=== PATIENT | female | born 1970 | race Caucasian/White ===

== ENCOUNTER → 2019-07-28 09:16 | Outpatient (BNVA) | payer MEDICARE, MEDICAID, SELFPAY | PROVIDERS: Family Provider Family Medicine; PCP Family Medicine; Visit Provider Otolaryngology | DX: H92.02 Otalgia, left ear (principal); H92.12 Otorrhea, left ear; J31.0 Chronic rhinitis; J34.2 Deviated nasal septum; J34.3 Hypertrophy of nasal turbinates; R09.82 Postnasal drip; H91.90 Unspecified hearing loss, unspecified ear; F17.210 Nicotine dependence, cigarettes, uncomplicated | CPT/HCPCS: 99203; 99214 ==

== ENCOUNTER 2019-10-18 18:14 | Emergency (ER) | payer MEDICARE, MEDICAID, SELFPAY ==
[2019-10-18 18:34] VITALS: BP 180/131; PULSE 94; RESP 17; TEMP 36.7; O2SAT 97; BMI 32.5
--- NOTE | 2019-10-18 19:01 | XR_ITS ---
WS: [id number] SHOULDER RIGHT TECHNIQUE: 3 views of the right shoulder CLINICAL INFORMATION: pain COMPARISON: None. FINDINGS: Normal acromioclavicular joint. Normal glenohumeral joint. Acromion is normal in appearance. Normal g lenoid. No evidence of acute fracture dislocation. XR/XR shoulder RT min 2V* [id number] IMPRESSION: Normal right shoulder.
--- NOTE | 2019-10-18 19:01 | XR_ITS ---
WS: [id number] SHOULDER LEFT TECHNIQUE: 3 views of the left shoulder CLINICAL INFORMATION: pain COMPARISON: None. FINDINGS: Normal acromioclavicular joint. Normal glenohumeral joint. Acromion is normal in appearance. Normal g lenoid. No evidence of acute fracture dislocation. XR/XR shoulder LT min 2V* [id number] IMPRESSION: Normal left shoulder.
--- NOTE | 2019-10-18 19:01 | XR_ITS ---
WS: [id number] PROCEDURE: XR chest 1V [id number] CLINICAL INFORMATION: pain COMPARISON: None. FINDINGS: Heart: Normal cardiac silhouette. Lungs: Lungs are clear. No consolidation or pleural fluid. Bones: Normal visualized bony structures. XR/XR chest 1V [id number] IMPRESSION: Normal chest
--- NOTE | 2019-10-18 19:06 | W.ED.GENADLT ---
HPI - General Adult General: Chief complaint: General Medical Stated complaint: arm pain due to fall Time Seen by Provider: 10/18/19 18:38 History of Present Illness: HPI narrative: 48-year-old female complains of bilateral shoulder pain radiating across her clavicles into her breastbone since August. She evidently fell on outstretched arms and felt a jarring motion in the area. She is having trouble sleeping and lifting things overhead. She says the pain is getting worse. Onset (ago): month(s) (2) Location: right and upper extremity Radiation: other (chest) Severity: moderate Quality: aching and sharp Pain Consistency: constant Relieving factors: none Exacerbating factors: movement Associated symptoms: Deny chest pain, dyspnea, headache(s), nausea, rash, palpitations or vomiting Review of Systems Const: Denies: fever or chills Eyes: Denies: change in vision or blurry vision ENMT: Denies: painful swallowing or facial/sinus pain Card: Denies: chest pain, palpitations or irregular heart rhythm Resp: Denies: shortness of breath, productive cough or wheezing GI: Denies: abdominal pain, nausea or vomiting Musc: Reports: neck pain; Denies: back pain, redness or joint warmth Skin/Breast: Denies: rash Neuro: Denies: headache, dizziness or vertigo Psych: Denies: anxiety PFSH ED PFSH: Social History Smoking and tobacco status: current every day smoker cigarettes Physical Exam Const: GENERAL APPEARANCE: well developed ORIENTATION/CONSCIOUSNESS: Yes oriented to person, Yes oriented to place and Yes oriented to time HENMT: COMMON NORMALS: normocephalic and external nose normal HEAD & SCALP: normocephalic FACE & SINUS: normal facial exam NOSE: external nose normal Eye: COMMON NORMALS: PERRL, EOMs intact bilaterally and conjunctivae normal EYELID: eyelids normal CONJUNCTIVA: Yes conjunctivae normal PUPIL: Yes PERRL Neck/C-Spine: COMMON NORMALS: full ROM GENERAL: No tracheal deviation CERVICAL SPINE: Yes normal cervical lordosis and No cervical spine tenderness Chest: COMMONS NORMALS: inspection of chest normal CHEST: No tenderness Resp: COMMON NORMALS: clear to auscultation bilaterally EFFORT & INSPECTION: No tachypneic, No respiratory distress, No retractions, No uses accessory muscles and No tracheal deviation AUSCULTATION: clear to auscultation bilaterally, no rhonchi, no wheezes and lung sounds not diminished Cardio: COMMON NORMALS: regular rate and regular rhythm RATE: regular rate RHYTHM: regular rhythm HEART SOUNDS: no murmurs PERIPHERAL PULSES: radial pulses present GI: INSPECTION: No abdominal distension Extremity: NARRATIVE EXTREMITY EXAM: Bilateral shoulder anterior tenderness with tenderness over the AC joints and SC joints. No deformity. Some tenderness in the rotator cuff footprint with movement. Neuro: SENSORIUM/ORIENTATION: Yes oriented to person, Yes oriented to place and Yes oriented to time Psych: COMMON NORMALS: mental status grossly normal Skin: COMMON NORMALS: no rashes or lesions noted GENERAL SKIN EXAM: no rashes or lesions noted Course Vital Signs: Vital signs: Vital Signs Temperature 98.1 F 10/18/19 18:34 Pulse Rate 94 10/18/19 18:34 Respiratory Rate 17 10/18/19 18:34 Blood Pressure 180/131 10/18/19 18:34 Pulse Oximetry 97 10/18/19 18:34 Discharge Plan Discharge Clinical Impression: Sprain of left sternoclavicular joint Qualifiers: Encounter type: initial encounter Qualified Code(s): S43.62XA - Sprain of left sternoclavicular joint, initial encounter Sprain of right sternoclavicular joint Qualifiers: Encounter type: initial encounter Qualified Code(s): S43.61XA - Sprain of right sternoclavicular joint, initial encounter Condition: Stable Prescriptions: [place] 5-325 mg tablet 1 tab PO Q6H PRN (Reason: pain) Qty: 10 RF: 0 ketorolac 10 mg tablet 10 mg PO Q6H PRN (Reason: pain) Qty: 10 RF: 0 No Action levalbuterol HCl See Rx Instructions .ROUTE .COMPLEX RF: 0 montelukast [Singulair] 10 mg tablet 10 mg PO .as needed RF: 0 Tylenol Arthritis Pain 650 mg Tablet Extended Release 650 mg PO Q12H PRN (Reason: Pain) RF: 0 levalbuterol tartrate [Xopenex HFA] 45 mcg/actuation HFA aerosol inhaler See Rx Instructions .ROUTE .COMPLEX RF: 0 Discharge Orders: Discharge Order (Routine); Ordered 10/18/19 Ordered By: Ashkan Santos Referrals: Dominick Shane MD [Primary Care Provider] - 4-7 days Discharge Diet: Usual diet Discharge Activity: Increase activity as tolerated Patient Instructions: Ligament Sprain (ED) Activity Restrictions/Additional Instructions: See your doctor, as a short course of physical therapy or further testing may be needed. Coding Level of Care Code ED [employer] for [employer] Seymour
== END 2019-10-18 20:39 ==
PROVIDERS: Emergency Provider Emergency Medicine; Family Provider Family Medicine; PCP Family Medicine
DX: S43.62XA Sprain of left sternoclavicular joint, initial encounter (principal); S43.61XA Sprain of right sternoclavicular joint, initial encounter; W19.XXXA Unspecified fall, initial encounter; F17.210 Nicotine dependence, cigarettes, uncomplicated
CPT/HCPCS: 12345; 71045; 73030; 99281; 99282

== ENCOUNTER 2020-01-06 21:15 | Emergency (ER) | payer MEDICARE, MEDICAID, SELFPAY ==
[2020-01-06 21:29] VITALS: BP 129/92; PULSE 77; RESP 18; TEMP 36.3; O2SAT 93; BMI 31.9
--- NOTE | 2020-01-06 21:55 | ED_ITS ---
HPI - Neck Pain/Injury General: Chief Complaint: Neck Pain/Injury Stated Complaint: neck swelling and pain Time Seen by Provider: 01/06/20 21:35 History of Present Illness: HPI Narrative: Patient is a 49-year-old female comes to the ED with neck pain. Patient also has some right arm and shoulder pain that is currently being further evaluated and patient has a scheduled MRI coming up. Patient is complaining of right-sided neck pain and tenderness that started approximately 2 days ago. Patient rates the pain a 10 out of 10. She says that any head movement causes some pain on right side of neck. Patient says she has right-sided neck swelling. Denies any trouble breathing. Denies any fever, chills, nausea/vomiting, bladder or bowel symptoms. Associated symptoms: Denies headache(s) or nausea Review of Systems Const: Denies: fever(s), chills or fatigue Eyes: Denies: change in vision or eye discomfort ENMT: Denies: throat pain, odynophagia, nasal discharge or nasal congestion Card: Denies: chest pain, palpitations, edema, swelling of feet/ankles, dyspnea on exertion or orthopnea Resp: Denies: dyspnea, productive cough or non-productive cough GI: Denies: abdominal pain, nausea, vomiting, diarrhea, constipation or hematochezia : Denies: flank pain, dysuria or hematuria Musc: Reports: neck pain (Patient complaining of right-sided neck pain and right-sided neck swelling.); Denies: back pain or extremity swelling Skin/Breast: Denies: rash or new lesions Neuro: Denies: headache(s), numbness in extremities or weakness in extremities [facility] ED PFSH: Family History Other Hypertension Thyroid trouble Social History Smoking and tobacco status: current every day smoker cigarettes Physical Exam Const: COMMON NORMALS: no acute distress, patient oriented x3 and alert GENERAL APPEARANCE: cooperative and comfortable HENMT: COMMON NORMALS: normocephalic HEAD & SCALP: normocephalic MOUTH: Normal oral and palatal mucosa present THROAT: posterior oropharynx normal and uvula midline Eye: COMMON NORMALS: Equal, round and reactive pupils present PUPIL: Yes Equal, round and reactive pupils present Neck/C-Spine: COMMON NORMALS: supple GENERAL: Yes normal visual inspection, No anterior neck swelling, Yes tender (Right sided neck muscle tenderness. Sternocleidomastoid muscle tenderness.) and No Mass present (neck) OTHER: Patient has no visible swelling on the right side of neck and no mass palpated on right side of neck. Lymph: LYMPHATIC: lymphadenopathy right anterior cervical single, mobile and tender 2 cm Resp: COMMON NORMALS: normal respiratory effort, No retractions, No use of accessory muscles and clear to auscultation bilaterally AUSCULTATION: clear to auscultation bilaterally Cardio: COMMON NORMALS: regular rate, regular rhythm, S1 normal heart sound present, S2 normal heart sound present, No gallops present (Cardio), No clicks present (Cardio), No murmurs present (Cardio) and Peripheral pulses 2+ throughout RATE: regular rate RHYTHM: regular rhythm HEART SOUNDS: S1 normal heart sound present and S2 normal heart sound present PERIPHERAL PULSES: Peripheral pulses 2+ throughout GI: COMMON NORMALS: Normal to inspection, nondistended, normoactive bowel sounds present, Soft to palpation, non-tender and no masses PALPATION: Yes Soft to palpation : COMMON NORMALS: Yes no CVA tenderness BLADDER/KIDNEY EXAM: Yes no CVA tenderness Back/Pelvis: COMMON NORMALS: no CVA tenderness Extremity: COMMON NORMALS: normal to inspection and no pedal edema Neuro: COMMON NORMALS: patient oriented x3 and moves all extremities SENSOR IUM/ORIENTATION: Yes alert Skin: COMMON NORMALS: no rashes or lesions noted GENERAL SKIN EXAM: no rashes or lesions noted and dry skin Course Vital Signs: Vital signs: Vital Signs Temperature 97.4 F L 01/06/20 21:29 Pulse Rate 84 01/07/20 00:26 Respiratory Rate 18 01/07/20 00:26 Blood Pressure 147/92 01/07/20 00:26 Pulse Oximetry 97 01/07/20 00:26 MDM - Neck Pain/Injury MDM Narrative: Medical decision making narrative: Is a 49-year-old female comes to the ED with right-sided neck pain. Patient has a history of some right arm and shoulder pain and is getting an MRI performed in the next couple weeks. Patient was complaining of having trouble chewing and swallowing but denied any problems with breathing or airway obstruction. Physical was remarkable for some right cervical muscle tenderness (sternocleidomastoid) and tender submandibular lymph node palpated. CT of the neck was performed and it showed Fat stranding surrounding the right carotid artery bifurcation. No mass or organized fluid collection. This finding could relate to prior surgery or procedure. Correlation with patient's prior procedure history recommended. An inflammatory process such as arteritis is not excluded. Scattered cervical and submandibular lymph nodes are most likely reactive. Patient was given Toradol and Norflex while here in the ED. She was also given a dose of Decadron as well. Patient diagnosed with neck muscle strain and lymphadenitis. She was given a prescription for tizanidine and Decadron. She was also told to take [id number] ibuprofen to help with pain inflammation as well. Patient discharged and told to follow- up with PCP in 7 to 10 days for reevaluation. Return to ED if symptoms worsen. Patient understood and agreed with plan. Imaging Data^: Other CT: Attestation: I personally reviewed and interpreted this imaging study as follows: Radiologist's impression: [place] [address] CT Scan Report Signed Patient: Eduarda Houser Unit #: [id number] : 1970 Age/Sex: 49 / F ADM Date: 01/06/20 Loc: ER Room/Bed: Attending Dr: Ordering Provider/Ordering MD: Brice Shore Date of Service: 01/06/20 Procedure(s): CT neck wo con [id number] Accession Number(s): [id number] Report Number: [id number] PROCEDURE INFORMATION: Exam: CT Neck Without Contrast Exam date and time: 01/06/2020 11:09 PM Age: 49 years old Clinical indication: Dysphagia / difficulty swallowing; Throat pain; Prior surgery; Surgery type: Mass removed; Additional info: Neck pain and trouble swallowing TECHNIQUE: Imaging protocol: Computed tomography images of the neck without contrast. Radiation optimization: All CT scans at this facility use at least one of these dose optimization techniques: automated exposure control; mA and/or kV adjustment per patient size (includes targeted exams where dose is matched to clinical indication); or iterative reconstruction. COMPARISON: CT neck w con* [id number] 11/19/2016 10:41 PM RADIATION DOSE METRICS: Total DLP (mGy-cm): 597.06 FINDINGS: Nasopharynx: Unremarkable. Oropharynx: Unremarkable. No significant tonsillar enlargement. Hypopharynx: Unremarkable. Larynx: Unremarkable. Normal epiglottis. Retropharyngeal space: Unremarkable. Submandibular/Parotid glands: Normal. Glands are normal in size. Thyroid: Normal. No enlarged or calcified nodules. Lymph nodes: Scattered cervical and submandibular lymph nodes measure up to 10 mm short axis and are most likely reactive. Trachea: Visualized trachea is unremarkable. Lungs: Unremarkable as visualized. Bones/joints: Unremarkable. No acute fracture. Vasculature: There is mild stranding within the fat surrounding the distal right common carotid artery, bifurcation, and proximal internal carotid artery. No organized fluid collection or mass identified. Soft tissues: Severe centrilobular emphysema. CT/CT neck wo con [id number] IMPRESSION: 1. Fat stranding surrounding the right carotid artery bifurcation. No mass or organized fluid collection. This finding could relate to prior surgery or procedure. Correlation with patient's prior procedure history recommended. An inflammatory process such as arteritis is not excluded. 2. Scattered cervical and submandibular lymph nodes are most likely reactive. 3. Severe emphysema. Radiation Dose CTDIVOL = (mGy): DLP = 597.06 (mGy-cm) Dictated By: Yaw Merrill Signed By: Yaw Merrill Signed Date/Time: 01/06/202353 DD/ 52 Discharge Plan Discharge Patient Disposition: Home, Self-Care Clinical Impression: Lymphadenitis Neck muscle strain Qualifiers: Encounter type: initial encounter Qualified Code(s): S16.1XXA - Strain of muscle, fascia and tendon at neck level, initial encounter Condition: Stable Prescriptions: New tizanidine 2 mg tablet 2 mg PO TID PRN (Reason: muscle spasticity) Qty: 30 RF: 0 ibuprofen 600 mg tablet 600 mg PO Q8H Qty: 30 RF: 0 dexamethasone 2 mg tablet 2 mg PO TID 3 Days Qty: 9 RF: 0 No Action levalbuterol HCl See Rx Instructions .ROUTE .COMPLEX RF: 0 montelukast [Singulair] 10 mg tablet 10 mg PO .as needed RF: 0 bacitracin 500 unit/gram ointment 1 applic ophthalmic (eye) Q8H 7 Days Qty: 3.5 RF: 0 levalbuterol tartrate [Xopenex HFA] 45 mcg/actuation HFA aerosol inhaler See Rx Instructions .ROUTE .COMPLEX RF: 0 Discharge Orders: Discharge Order (Routine); Ordered 01/06/20 Ordered By: Brice Shore Referrals: Dominick Shane MD [Primary Care Provider] - Discharge Diet: Regular Discharge Activity: Increase activity as tolerated Patient Instructions: Muscle Strain (ED) Activity Restrictions/Additional Instructions: Follow-up with medical provider as directed 7-10 days. Go to your schedule MRI appointment in the future. Take medications as prescribed. Return to the ER or your medical provider if condition worsens. Please read and understand discharge instructions. If any questions, please ask. Discharge Date/Time: 01/07/20 00:27 Coding Level of Care Code ED [employer] for [employer] Fwd Exam Comprehensive
--- NOTE | 2020-01-06 23:02 | CTR_ITS ---
PROCEDURE INFORMATION: Exam: CT Neck Without Contrast Exam date and time: 01/06/2020 11:09 PM Age: 49 years old Clinical indication: Dysphagia / difficulty swallowing; Throat pain; Prior surgery; Surgery type: Mass removed; Additional info: Neck pain and trouble swallowing TECHNIQUE: Imaging protocol: Computed tomography images of the neck without contrast. Radiation optimization: All CT scans at this facility use at least one of these dose optimization techniques: automated exposure control; mA and/or kV adjustment per patient size (includes targeted exams where dose is matched to clinical indication); or iterative reconstruction. COMPARISON: CT neck w con* [id number] 11/19/2016 10:41 PM RADIATION DOSE METRICS: Total DLP (mGy-cm): 597.06 FINDINGS: Nasopharynx: Unremarkable. Oropharynx: Unremarkable. No significant tonsillar enlargement. Hypopharynx: Unremarkable. Larynx: Unremarkable. Normal epiglottis. Retropharyngeal space: Unremarkable. Submandibular/Parotid glands: Normal. Glands are normal in size. Thyroid: Normal. No enlarged or calcified nodules. Lymph nodes: Scattered cervical and submandibular lymph nodes measure up to 10 mm short axis and are most likely reactive. Trachea: Visualized trachea is unremarkable. Lungs: Unremarkable as visualized. Bones/joints: Unremarkable. No acute fracture. Vasculature: There is mild stranding within the fat surrounding the distal right common carotid artery, bifurcation, and proximal internal carotid artery. No organized fluid collection or mass identified. Soft tissues: Severe centrilobular emphysema. CT/CT neck wo con [id number] IMPRESSION: 1. Fat stranding surrounding the right carotid artery bifurcation. No mass or organized fluid collection. This finding could relate to prior surgery or procedure. Correlation with patient's prior procedure history recommended. An inflammatory process such as arteritis is not excluded. 2. Scattered cervical and submandibular lymph nodes are most likely reactive. 3. Severe emphysema. Radiation Dose CTDIVOL = (mGy): DLP = 597.06 (mGy-cm)
[2020-01-07] MEDS: diphenhydrAMINE 25 mg Capsule PO (00:19)
[2020-01-07] MEDS: dexamethasone 4 mg Tablet 10 MG PO (00:19)
[2020-01-07 00:26] VITALS: BP 147/92; PULSE 84; RESP 18; O2SAT 97
== END 2020-01-07 00:27 | disposition home or self-care (01) ==
PROVIDERS: Emergency Provider Physician Assistant; PCP Family Medicine
DX: S16.1XXA Strain of muscle, fascia and tendon at neck level, initial encounter (principal); I88.9 Nonspecific lymphadenitis, unspecified; X58.XXXA Exposure to other specified factors, initial encounter; F17.210 Nicotine dependence, cigarettes, uncomplicated
CPT/HCPCS: 12345; 70490; 99281; 99283; J8540

== ENCOUNTER 2020-01-12 13:25 | Outpatient (CLI) | payer MEDICARE, MEDICAID, SELFPAY ==
--- NOTE | 2020-01-12 13:35 | MR_ITS ---
WS: [id number] MRI RIGHT SHOULDER NONCONTRAST TECHNIQUE: Sagittal T2, coronal PD, axial T2, CLINICAL INFORMATION: RIGHT SHOULDER PAIN COMPARISON: None. FINDINGS: Limited examination with 3 sequences obtained. Patient could not tolerate further imaging due to pain . Moderate degenerative arthritis at the AC joint with mild edema. Mild downsloping acromion. Rotator c uff appears intact. Normal supraspinatus. Normal infraspinatus. Normal teres minor and subscapularis. Normal biceps tendon in the bicipital groove. Glenoid labrum appears grossly normal. MR/MR shoulder RT wo con* [id number] IMPRESSION: 1. Limited examination. Patient could not tolerate further imaging. 2. 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 3. Rotator cuff is intact. No full-thickness rotator cuff tears. 4. Normal biceps tendon in the bicipital groove. 5. Glenoid labrum appears grossly normal.
== END 2020-01-12 13:26 | disposition home or self-care (01) ==
LOC: RADSHAW 13:33
PROVIDERS: PCP Family Medicine; Visit Provider Family Medicine
DX: M25.511 Pain in right shoulder (principal); M19.011 Primary osteoarthritis, right shoulder; R60.0 Localized edema
CPT/HCPCS: 73221

== ENCOUNTER 2021-02-27 11:04 | Outpatient (CLI) | payer MEDICARE, MEDICAID, SELFPAY ==
--- NOTE | 2021-02-27 11:10 | CT_ITS ---
WS: [id number] CT ABDOMEN PELVIS TECHNIQUE: Contrast-enhanced CT of the abdomen and pelvis with coronal and sagittal reformatted image s. CLINICAL INFORMATION: CHRONIC RLQ ABDOMINAL PAIN COMPARISON: CT abdomen pelvis 12 26,018 DLP: 1120.[address] scans at [facility] use at least one of these dose optimization techniques: automat ed exposure control; mA and/or kV adjustment per patient size (includes targeted exams where dose is matched to clinical indication); or iterative reconstruction. FINDINGS: Prior cholecystectomy and hysterectomy. Diffuse fatty infiltration liver. Hepatomegaly. A few small hepatic cysts. Normal portal vein and splenic vein. Normal spleen. Lung bases are well aerated. Jacqueline l GE junction. Normal pancreatic parenchymal enhancement. Normal caliber abdominal aorta. No abdomina l or pelvic lymphadenopathy. Adrenal glands are normal. Normal renal parenchymal enhancement. No hydr onephrosis. Normal sigmoid colon. Transverse colon constipation. No free fluid in the pelvis. Complex right ovari an lesion measuring 2.2 x 2.1 cm. This can be further evaluated with ultrasound. Normal lumbar spine. CT/CT abdomen pelvis w con* [id number] IMPRESSION: 1. Prior postoperative cholecystectomy and hysterectomy 2. Complex right ovarian mixed attenuation lesion measuring 2.0 x 2.2 CM. This is indeterminant and recommend further evaluation with pelvic ultrasound. 3. Diffuse fatty infiltration of the liver with hepatomegaly. A few incidental hepatic cysts are unchanged. 4. No hydronephrosis in either kidney. 5. Transverse colon constipation. 6. No other significant findings.
[2021-02-27] MEDS: iohexol 300 mg/mL 50 mL Btl PO (11:42)
[2021-02-27] MEDS: iohexol 300 mg/mL 100 mL Btl IV (13:13)
== END 2021-02-27 11:05 | disposition home or self-care (01) ==
PROVIDERS: PCP Family Medicine; Visit Provider Family Medicine
DX: R10.31 Right lower quadrant pain (principal); K59.00 Constipation, unspecified; K76.0 Fatty (change of) liver, not elsewhere classified; R16.0 Hepatomegaly, not elsewhere classified; Z90.710 Acquired absence of both cervix and uterus; Z90.49 Acquired absence of other specified parts of digestive tract
CPT/HCPCS: 74177; Q9967

== ENCOUNTER 2021-05-08 08:16 | Emergency (ER) | payer MEDICARE, MEDICAID, SELFPAY ==
[2021-05-08 08:21] VITALS: BP 154/82; PULSE 87; RESP 18; TEMP 36.6; O2SAT 96; BMI 32.1
--- NOTE | 2021-05-08 08:41 | CT_ITS ---
WS: [id number] CT ABDOMEN AND PELVIS WITH CONTRAST HISTORY: LEFT lower quadrant pain. Worse with deep breathing. TECHNIQUE: Imaging performed of the abdomen and pelvis with IV contrast. Single phase imaging of the abdomen. Coronal and sagittal reformats are submitted. All CT scans at [facility] use at [address] one of these dose optimization techniques: automated exposure control; mA and/or kV adjustment per patient size (includes targeted exams where dose is matched to clinical indication); or iterative re construction. IV CONTRAST: Omnipaque 350; 95 mL IV. Oral contrast: No DLP: 1662.58 mGy.cm COMPARISON: 02/27/2021 Lower thorax: Lung bases are clear. Heart is normal size. Small hiatal hernia. Liver/biliary system: Normal size liver. Small scattered hepatic cysts. The largest in the LEFT lobe measures 10 mm. Bile ducts are normal. Portal vein is normal. Gallbladder: Status post cholecystectomy. Pancreas: Normal size pancreas and pancreatic duct. No adjacent inflammation. Spleen: Granulomatous. Normal size. Adrenal glands: Normal. Right kidney: Normal. Left kidney: Normal. Aorta: Mild atherosclerosis with no aneurysm. Lymphadenopathy: Small celiac chain lymph nodes are stable. No significant retroperitoneal or mesente idris adenopathy. Free fluid: None. GI tract: Normal appendix. No GI tract obstruction. No mucosal thickening or edema. Abdominal wall: Fat containing umbilical hernia. Pelvis: Prior hysterectomy. RIGHT adnexal cyst measures 2.3 x 2.5 cm. Change. Urinary bladder is not distended. Bones: No osteoblastic or osteolytic bone disease. Bone island in the LEFT femoral neck. Stable lytic area in the RIGHT ilium. CT/CT abdomen pelvis w con* [id number] IMPRESSION: 1. No acute abdominal or pelvic abnormalities. 2. Prior cholecystectomy and hysterectomy. 3. Stable hepatic cysts. 4. Stable RIGHT adnexal ovarian cyst measuring 2.3 x 2.5 cm.
--- NOTE | 2021-05-08 08:42 | ED_ITS ---
HPI - Abdominal Pain General: Chief Complaint: Abdominal Pain Stated Complaint: Pain in Left Side, Abdominal Time Seen by Provider: 05/08/21 08:22 History of Present Illness: HPI narrative: 50-year-old female presents emergency room complaining left lower quadrant abdominal pain for the last 2 to 3 days per the nursing notes. When I talked to her she referred more of the pain to the epigastric area and the right lower quadrant which was different than she had reported to the nurses. She denies any hematochezia melena hematemesis cough emesis but has been very nauseated. No diarrhea or constipation no dysuria urgency or frequency. She relates some of her pain to her hiatal hernia. She not taking any new or different medications recently. MD elicited complaint: abdominal pain Pertinent past history: other (Hiatal hernia) Onset (ago): day(s) Pain Consistency: constant Location: Epigastric and RLQ Quality: cramping Exacerbating factors: eating Associated Symptoms: Reports anorexia, bloating and GI cramping; Denies belching, change in bowel habits, change in stool character, chills, coffee ground emesis, constipation, diarrhea, dyspepsia, dysuria, excessive flatus, fever(s), heartburn, hematochezia, hematuria, hematemesis, fecal incontinence, loose stools, melena, nausea, poor appetite, syncope and vomiting Review of Systems Const: Denies: fever(s) or chills ENMT: Denies: throat pain, ear or mastoid pain, nasal discharge or nasal congestion Card: Denies: syncope Resp: Denies: dyspnea, productive cough or non-productive cough GI: Reports: bloating and GI cramping; Denies: nausea, vomiting, hematemesis, coffee ground emesis, heartburn, diarrhea, constipation, belching, excessive flatus, fecal incontinence, change in bowel habits, change in stool character, hematochezia or melena : Denies: dysuria or hematuria Skin/Breast: Denies: rash or pruritus PFSH ED PFSH: Family History Other Hypertension Thyroid trouble Social History Smoking and tobacco status: current every day smoker cigarettes Physical Exam Const: COMMON NORMALS: no acute distress GENERAL APPEARANCE: cooperative and comfortable ORIENTATION/CONSCIOUSNESS: Yes awake, Yes oriented to person, Yes oriented to place and Yes oriented to time HENMT: COMMON NORMALS: normocephalic, atraumatic and hearing grossly normal bi laterally HEAD & SCALP: normocephalic and atraumatic Neck/C-Spine: COMMON NORMALS: no JVD Resp: COMMON NORMALS: normal respiratory effort, No retractions, No use of accessory muscles and clear to auscultation bilaterally AUSCULTATION: clear to auscultation bilaterally Cardio: COMMON NORMALS: no JVD, regular rate, regular rhythm and No murmurs present (Cardio) RATE: regular rate RHYTHM: regular rhythm GI: COMMON NORMALS: No hepatosplenomegaly present AUSCULTATION: Yes normoactive bowel sounds PALPATION: Yes Tenderness to palpation present (GI), No Guarding due to palpation present (GI) and Yes No hepatosplenomegaly present Extremity: COMMON NORMALS: normal to inspection, capillary refill normal, no clubbing, cyanosis or edema, no calf tenderness and no pedal edema Neuro: SENSORIUM/ORIENTATION: Yes oriented to person, Yes oriented to place and Yes oriented to time Skin: COMMON NORMALS: no rashes or lesions noted GENERAL SKIN EXAM: no rashes or lesions noted Course Vital Signs: Vital signs: Vital Signs Temperature 97.8 F 05/08/21 08:21 Pulse Rate 61 05/08/21 11:20 Respiratory Rate 17 05/08/21 11:20 Blood Pressure 143/73 05/08/21 08:59 Pulse Oximetry 92 05/08/21 11:20 MDM - Abdominal Pain MDM Narrative: Medical decision making narrative: Reviewed labs and imaging with patient. Patient tells me that she had acute colonoscopy done about 3 to 3-1/2 years ago they told her they need to resect part of her colon due to a large polyp and that she also had hemorrhoids. She evidently became concerned she did not understand what was going on she refusing any treatment has not had any follow-up since then. At this point CT does not show anything except for amount of stool in the right side of the colon otherwise is unremarkable. Reviewed the findings with her and encouraged her to follow-up with the colon polyp that was seen previously she should have a follow-up colonoscopy. Ideally with where we did the first Lab Data: Labs: Lab Results 05/08/21 05/08/21 05/08/21 08:55 08:55 09:08 WBC 7.8 10^3/uL 10^3/ uL (4.0-10.0) RBC 4.80 10^6/uL 10^6 /uL (4.1-5.3) Hgb 14.0 g/dL g/dL (11.5-15.3) Hct 44.1 % % (37.0-47.0) MCV 91.9 fl fl (81-99) MCH 29.2 pg pg (28.0-34.0) MCHC 31.7 g/dL g/dL (30.0-36.0) RDW 12.7 % % (12.1-15.1) Plt Count 336 10^3/cmm 10^3 /cmm (130-400) MPV 10.1 fL fL (7.4-10.4) Neut % (Auto) 53.7 % % Lymph % (Auto) 35.3 % % [place] % (Auto) 7.2 % % Eos % (Auto) 3.3 % % Baso % (Auto) 0.4 % % Neut # (Auto) 4.17 10^3/uL 10^3 /uL (1.8-7.7) Lymph # (Auto) 2.7 10^3/uL 10^3/ uL (0.8-4.8) [place] # (Auto) 0.6 10^3/uL 10^3/ uL (0.2-0.9) Eos # (Auto) 0.3 10^3/uL 10^3/ uL (0.0-0.8) Baso # (Auto) 0.0 10^3/uL 10^3/ uL (0.0-0.1) Nucleated RBC % (a uto) 0 % % Nucleated RBCs # 0.0 /100WBC /100W BC Sodium 139 mmol/L mmol/L (136-145) Potassium 4.0 mmol/L mmol/L (3.5-5.1) Chloride 101 mmol/L mmol/L (98-107) Carbon Dioxide 28 mmol/L mmol/L (22-29) Anion Gap 14.0 (5-19) BUN 9 mg/dL mg/dL (6-20) Creatinine 0.6 mg/dL mg/dL (0.5-0.9) GFR Calculation 105.0 mL/min mL/m in (90-130) Glucose 88 mg/dL mg/dL (65-115) Calculated Osmolal ity 286 mOsm/kg mOsm/ kg (285-295) Calcium 9.3 mg/dL mg/dL (8.5-10.5) Total Bilirubin 0.2 mg/dL mg/dL (0.15-1.2) AST 14 U/L U/L (0-32) ALT 11 U/L U/L (0-33) Alkaline Phosphata se 90 IU/L IU/L (35-105) Creatine Kinase 70 U/L U/L (26-192) Total Protein 8.4 g/dL g/dL (6.6-8.7) Albumin 4.2 g/dL g/dL (3.5-5.2) Globulin 4.2 g/dL g/dL (1.3-4.6) Lipase 19 U/L U/L (13-60) Urine Color Straw (Yellow) Urine Appearance Clear (CLEAR) Urine pH 5 (5-7) Ur Specific Gravit y 1.015 (1.005-1.030) Urine Protein Neg (Negative) Urine Glucose (UA) Norm (Normal) Urine Ketones Negative (Negative) Urine Blood Neg (Negative) Urine Nitrate Negative (Negative) Urine Bilirubin Neg (Negative) Urine Urobilinogen Norm mg/dL mg/dL (Negative) Ur Leukocyte Nemo ase Negative (Negative) Discharge Plan Discharge Patient Disposition: Home Clinical Impression: Abdominal pain, Ovarian cyst Condition: Stable Prescriptions: New pantoprazole 40 mg tablet,delayed release (DR/EC) 40 mg PO DAILY 56 Days Qty: 60 RF: 0 promethazine 25 mg tablet 25 mg PO Q6H PRN (Reason: nausea and vomiting) Qty: 10 RF: 0 No Action levalbuterol HCl See Rx Instructions .ROUTE .COMPLEX RF: 0 montelukast [Singulair] 10 mg tablet 10 mg PO .as needed RF: 0 bacitracin 500 unit/gram ointment 1 applic ophthalmic (eye) Q8H 7 Days Qty: 3.5 RF: 0 levalbuterol tartrate [Xopenex HFA] 45 mcg/actuation HFA aerosol inhaler See Rx Instructions .ROUTE .COMPLEX RF: 0 tizanidine 2 mg tablet 2 mg PO TID PRN (Reason: muscle spasticity) Qty: 30 RF: 0 ibuprofen 600 mg tablet 600 mg PO Q8H Qty: 30 RF: 0 Discharge Orders: Discharge ED (Routine); Ordered 05/08/21 Ordered By: Rajiv Mcmillan Referrals: Dominick Shane MD [Primary Care Provider] - Discharge Diet: Clear Liquid Discharge Activity: Increase activity as tolerated Patient Instructions: Abdominal Pain (ED), Opioid Safety Coding Level of Care Code ED Coffee Supervisor for Chg Fwd Exam Comprehensive
[2021-05-08 08:59] VITALS: BP 143/73; PULSE 82; RESP 18; O2SAT 97
[2021-05-08 09:16] LABS: Basophils % 0.4 %; Eosinophils # 0.3 10^3/uL (0.0-0.8); Eosinophils % 3.3 %; Hematocrit 44.1 % (37.0-47.0); Lymphocytes # 2.7 10^3/uL (0.8-4.8); Lymphocytes % 35.3 %; Mean Corpuscular HGB Conc 31.7 g/dL (30.0-36.0); Mean Corpuscular Hemoglobin 29.2 pg (28.0-34.0); Mean Corpuscular Volume 91.9 fl (81-99); Mean Platelet Volume 10.1 fL (7.4-10.4); Monocytes # 0.6 10^3/uL (0.2-0.9); Monocytes % 7.2 %; Neutrophils # 4.17 10^3/uL (1.8-7.7); Neutrophils % 53.7 %; Nucleated Red Blood Cells % 0 %; Platelet Count 336 10^3/cmm (130-400); Red Cell Distribution Width 12.7 % (12.1-15.1); White Blood Count 7.8 10^3/uL (4.0-10.0)
[2021-05-08] MEDS: lidocaine 2% viscous 15 ML, aluminum-mag hydrox-simethicon 30 ML, sucralfate oral liq 1 GM PO (09:40)
[2021-05-08 09:41] LABS: Add Urine Microscopic? NO; Charge for UA Resulting for Rev
[2021-05-08 09:41] LABS: Alanine Aminotransferase 11 U/L (0-33); Albumin Level 4.2 g/dL (3.5-5.2); Alkaline Phosphatase 90 IU/L (35-105); Aspartate Amino Transferase 14 U/L (0-32); Blood Urea Nitrogen 9 mg/dL (6-20); Calcium 9.3 mg/dL (8.5-10.5); Carbon Dioxide 28 mmol/L (22-29); Chloride 101 mmol/L (98-107); Creatine Phosphokinase 70 U/L (26-192); Globulin 4.2 g/dL (1.3-4.6); Glucose 88 mg/dL (65-115); Lipase 19 U/L (13-60); Osmolality Calculated 286 mOsm/kg (285-295); Sodium 139 mmol/L (136-145); Total Bilirubin 0.2 mg/dL (0.15-1.2); Total Protein 8.4 g/dL (6.6-8.7)
[2021-05-08] MEDS: ondansetron 2 mg/ML SDV 2 mL 4 MG IVP (09:41)
[2021-05-08] MEDS: morphine 4 mg/mL SDV 1 mL IVP (09:42)
[2021-05-08] MEDS: sodium chloride 0.9% 1,000 ML 999 ML IV (09:42)
[2021-05-08 10:21] LABS: Bilirubin Urine Neg (Negative); Blood Urine Neg (Negative); Glucose Urine UA Norm (Normal); Ketones Urine Negative (Negative); Leukocyte Esterase Urine Negative (Negative); Nitrate Urine Negative (Negative); Protein Urine Neg (Negative); Specific Gravity, Urine 1.015 (1.005-1.030); Urine Appearance Clear (CLEAR); Urine Color Straw (Yellow); Urobilinogen Urine Norm (Negative); pH Urine 5 (5-7)
[2021-05-08 11:20] VITALS: PULSE 61; RESP 17; O2SAT 92
== END 2021-05-08 11:21 | disposition home or self-care (01) ==
PROVIDERS: Emergency Provider Family Medicine; PCP Family Medicine
DX: R10.32 Left lower quadrant pain (principal); N83.291 Other ovarian cyst, right side; F17.210 Nicotine dependence, cigarettes, uncomplicated
CPT/HCPCS: 74177; 80053; 81003; 82550; 83690; 85025; 96361; 96374; 96375; 99284; J2270; J2405; J7030; Q9967

== ENCOUNTER 2021-05-13 12:08 | Emergency (ER) | payer MEDICARE, MEDICAID, SELFPAY ==
[2021-05-13 12:22] VITALS: BP 165/85; PULSE 66; RESP 18; TEMP 36.9; O2SAT 99; BMI 31.9
[2021-05-13 12:49] LABS: Basophils % 0.6 %; Eosinophils # 0.1 10^3/uL (0.0-0.8); Eosinophils % 1.8 %; Hematocrit 42.4 % (37.0-47.0); Hemoglobin 13.5 g/dL (11.5-15.3); Lymphocytes # 1.5 10^3/uL (0.8-4.8); Lymphocytes % 21.2 %; Mean Corpuscular HGB Conc 31.8 g/dL (30.0-36.0); Mean Corpuscular Hemoglobin 29.2 pg (28.0-34.0); Mean Corpuscular Volume 91.8 fl (81-99); Mean Platelet Volume 10.3 fL (7.4-10.4); Monocytes # 0.5 10^3/uL (0.2-0.9); Neutrophils # 5.04 10^3/uL (1.8-7.7); Neutrophils % 69.3 %; Nucleated Red Blood Cells % 0 %; Platelet Count 300 10^3/cmm (130-400); Red Blood Count 4.62 10^6/uL (4.1-5.3); Red Cell Distribution Width 12.8 % (12.1-15.1); White Blood Count 7.3 10^3/uL (4.0-10.0)
--- NOTE | 2021-05-13 12:51 | W.ED.ABDPA2 ---
HPI - Abdominal Pain General: Chief Complaint: Abdominal Pain Stated Complaint: ABD PAIN Time Seen by Provider: 05/13/21 12:38 History of Present Illness: HPI narrative: Patient is a 50-year-old female comes to the ED with abdominal pain and nausea. Patient was seen here in the ED on May 08 for same complaint. Patient says the pain has not gotten any better since she discharged from the ED on May 08. Her abdominal pain started approximately 10 days ago. She says the pain currently is located in the periumbilical and left side of her abdomen. Pain is the same as it was back on May 08. She says the previously prescribed pain med given that her only helps for about an hour after she takes it. She rates the pain a 10 out of 10 and says it is a sharp stabbing type pain. She has had some nausea and had one episode of emesis yesterday. She says she has oxycodones that she takes for pain and that has only helped a little bit. Associated Symptoms: Reports nausea and vomiting; Denies chills, constipation, diarrhea, dysuria, fever(s), hematochezia and hematuria Review of Systems Const: Denies: fever(s), chills or fatigue Eyes: Denies: change in vision or eye discomfort ENMT: Denies: throat pain, odynophagia, nasal discharge or nasal congestion Card: Denies: chest pain, palpitations, edema, swelling of feet/ankles, dyspnea on exertion or orthopnea Resp: Denies: dyspnea, productive cough or non-productive cough GI: Reports: abdominal pain, nausea and vomiting; Denies: diarrhea, constipation or hematochezia : Denies: flank pain, dysuria or hematuria Musc: Denies: neck pain, back pain or extremity swelling Skin/Breast: Denies: rash or new lesions Neuro: Denies: headache(s), numbness in extremities or weakness in extremities PFSH ED PFSH: Family History Other Hypertension Thyroid trouble Social History Smoking and tobacco status: current every day smoker cigarettes Physical Exam Const: COMMON NORMALS: no acute distress, patient oriented x3 and alert GENERAL APPEARANCE: cooperative and comfortable HENMT: COMMON NORMALS: normocephalic HEAD & SCALP: normocephalic MOUTH: Normal oral and palatal mucosa present THROAT: posterior oropharynx normal and uvula midline Eye: COMMON NORMALS: Equal, round and reactive pupils present PUPIL: Yes Equal, round and reactive pupils present Neck/C-Spine: COMMON NORMALS: supple GENERAL: Yes normal visual inspection Resp: COMMON NORMALS: normal respiratory effort, No retractions, No use of accessory muscles and clear to auscultation bilaterally AUSCULTATION: clear to auscultation bilaterally Cardio: COMMON NORMALS: regular rate, regular rhythm, S1 normal heart sound present, S2 normal heart sound present, No gallops present (Cardio), No clicks present (Cardio), No murmurs present (Cardio) and Peripheral pulses 2+ throughout RATE: regular rate RHYTHM: regular rhythm HEART SOUNDS: S1 normal heart sound present and S2 normal heart sound present PERIPHERAL PULSES: Peripheral pulses 2+ throughout GI: COMMON NORMALS: Normal to inspection, nondistended, normoactive bowel sounds present, Soft to palpation and no masses PALPATION: Yes Soft to palpation and Yes Tenderness to palpation present (GI) Details: LLQ, LUQ and other (Periumbilical) : COMMON NORMALS: Yes no CVA tenderness BLADDER/KIDNEY EXAM: Yes no CVA tenderness Back/Pelvis: COMMON NORMALS: no CVA tenderness Extremity: COMMON NORMALS: normal to inspection Neuro: COMMON NORMALS: patient oriented x3 SENSORIUM/ORIENTATION: Yes alert GAIT: Yes Normal gait present Skin: GENERAL SKIN EXAM: dry skin Course Vital Signs: Vital signs: Vital Signs Temperature 98.4 F 05/13/21 12:22 Pulse Rate 78 05/13/21 16:29 Respiratory Rate 18 05/13/21 16:29 Blood Pressure 122/68 05/13/21 16:29 Pulse Oximetry 99 05/13/21 16:29 MDM - Abdominal Pain MDM Narrative: Medical decision making narrative: Patient is a 50-year-old female comes to the ED with abdominal pain. Patient was seen here in the ED for same complaint several days ago back on May 08. Labs and imaging were done back on May 08 and everything came back normal. She was referred to general surgery for a colonoscopy and is in the process of getting that set up. She is having the same pain she was having back on May 08 and says pain meds she has only help for about an hour. Patient was given a prescription for oxycodone by Dr. Shane on May 10 and it was a 4-day supply. Denies any fever, chills, bladder or bowel symptoms. Vitals stable. Patient appears nontoxic and in no acute distress. She has some left sided abdominal tenderness. Labs were unremarkable and CT abdomen showed no acute findings or changes from previous CT. patient was diagnosed with generalized abdominal pain and discharged home with a prescription for hydrocodone 5-325 mg 8 tablets. She was told to follow-up with her PCP in 5 to 7 days and to go to her colonoscopy appointment once that set up. Return ED precautions given. Patient understood and agree with plan. Lab Data: Attestation: I reviewed the patient's lab results. Labs: Lab Results 05/13/21 05/13/21 05/13/21 12:42 12:42 12:42 WBC 7.3 10^3/uL 10^3/ uL (4.0-10.0) RBC 4.62 10^6/uL 10^6 /uL (4.1-5.3) Hgb 13.5 g/dL g/dL (11.5-15.3) Hct 42.4 % % (37.0-47.0) MCV 91.8 fl fl (81-99) MCH 29.2 pg pg (28.0-34.0) MCHC 31.8 g/dL g/dL (30.0-36.0) RDW 12.8 % % (12.1-15.1) Plt Count 300 10^3/cmm 10^3 /cmm (130-400) MPV 10.3 fL fL (7.4-10.4) Neut % (Auto) 69.3 % % Lymph % (Auto) 21.2 % % [place] % (Auto) 7.0 % % Eos % (Auto) 1.8 % % Baso % (Auto) 0.6 % % Neut # (Auto) 5.04 10^3/uL 10^3 /uL (1.8-7.7) Lymph # (Auto) 1.5 10^3/uL 10^3/ uL (0.8-4.8) [place] # (Auto) 0.5 10^3/uL 10^3/ uL (0.2-0.9) Eos # (Auto) 0.1 10^3/uL 10^3/ uL (0.0-0.8) Baso # (Auto) 0.0 10^3/uL 10^3/ uL (0.0-0.1) Nucleated RBC % (a uto) 0 % % Nucleated RBCs # 0.0 /100WBC /100W BC Sodium Cancelled Potassium Cancelled Chloride Cancelled Carbon Dioxide Cancelled Anion Gap Cancelled BUN Cancelled Creatinine Cancelled GFR Calculation Cancelled Glucose Cancelled Calculated Osmolal ity Cancelled Calcium Cancelled Total Bilirubin Cancelled AST Cancelled ALT Cancelled Alkaline Phosphata se Cancelled Total Protein Cancelled Albumin Cancelled Globulin Cancelled Lipase Cancelled Urine Color Yellow (Yellow) Urine Appearance Sl hazy (CLEAR) Urine pH 5 (5-7) Ur Specific Gravit y 1.015 (1.005-1.030) Urine Protein Trace (Negative) Urine Glucose (UA) Norm (Normal) Urine Ketones Negative (Negative) Urine Blood 2+ H (Negative) Urine Nitrate Negative (Negative) Urine Bilirubin Neg (Negative) Urine Urobilinogen Norm mg/dL mg/dL (Negative) Ur Leukocyte Nemo ase Negative (Negative) Urine RBC 0-4 /hpf H /hpf (0-2) Urine WBC 0-4 /hpf H /hpf (0-5) Ur Squamous Epith Cells 15-25 /hpf H /hpf (0-5) Amorphous Sediment Not Reportable Urine Bacteria 1+ /hpf H /hpf (NONE) Urine Mucus 1+ /hpf /hpf 05/13/21 13:16 WBC RBC Hgb Hct MCV MCH MCHC RDW Plt Count MPV Neut % (Auto) Lymph % (Auto) [place] % (Auto) Eos % (Auto) Baso % (Auto) Neut # (Auto) Lymph # (Auto) [place] # (Auto) Eos # (Auto) Baso # (Auto) Nucleated RBC % (a uto) Nucleated RBCs # Sodium 136 mmol/L mmol/L (136-145) Potassium 4.4 mmol/L mmol/L (3.5-5.1) Chloride 97 mmol/L L mmol/ L (98-107) Carbon Dioxide 28 mmol/L mmol/L (22-29) Anion Gap 15.4 (5-19) BUN 8 mg/dL mg/dL (6-20) Creatinine 0.7 mg/dL mg/dL (0.5-0.9) GFR Calculation 87.9 mL/min L mL/ min (90-130) Glucose 98 mg/dL mg/dL (65-115) Calculated Osmolal ity 280 mOsm/kg L mOs m/kg (285-295) Calcium 8.9 mg/dL mg/dL (8.5-10.5) Total Bilirubin 0.2 mg/dL mg/dL (0.15-1.2) AST 17 U/L U/L (0-32) ALT 11 U/L U/L (0-33) Alkaline Phosphata se 86 IU/L IU/L (35-105) Total Protein 8.2 g/dL g/dL (6.6-8.7) Albumin 4.0 g/dL g/dL (3.5-5.2) Globulin 4.2 g/dL g/dL (1.3-4.6) Lipase 13 U/L U/L (13-60) Urine Color Urine Appearance Urine pH Ur Specific Gravit y Urine Protein Urine Glucose (UA) Urine Ketones Urine Blood Urine Nitrate Urine Bilirubin Urine Urobilinogen Ur Leukocyte Nemo ase Urine RBC Urine WBC Ur Squamous Epith Cells Amorphous Sediment Urine Bacteria Urine Mucus Imaging Data ^: CT Abd/Pel: Attestation: I personally reviewed and interpreted this imaging study as follows: Radiologist's impression: [facility] [address] [address] Scan Report Signed Patient: Eduarda Houser Unit #: [id number] : 1970 Age/Sex: 50 / F ADM Date: 05/13/21 Loc: ER Room/Bed: Attending Dr: Ordering Provider/Ordering MD: Brice Shore Date of Service: 05/13/21 Procedure(s): CT abdomen pelvis con [id number] Accession Number(s): [id number] Report Number: [id number] PROCEDURE INFORMATION: Exam: CT Abdomen And Pelvis Without Contrast Exam date and time: 05/13/2021 2:34 PM Age: 50 years old Clinical indication: Abdominal pain; Localized; Left lower quadrant (llq); Additional info: Llq abdomina pain and nausea TECHNIQUE: Imaging protocol: Computed tomography of the abdomen and pelvis without contrast. Radiation optimization: All CT scans at this facility use at least one of these dose optimization techniques: automated exposure control; mA and/or kV adjustment per patient size (includes targeted exams where dose is matched to clinical indication); or iterative reconstruction. COMPARISON: CT abdomen pelvis w con* [id number] 05/08/2021 9:16 AM RADIATION DOSE METRICS: Total DLP (mGy-cm): 1256.23 FINDINGS: Liver: There are cysts with benign features in the liver, stable from the prior exam. The largest measures 9 mm and is in the left hepatic lobe. Gallbladder and bile ducts: The gallbladder has been removed. Pancreas: Normal. No ductal dilation. Spleen: Normal. No splenomegaly. Adrenal glands: Normal. No mass. Kidneys and ureters: Normal. No hydronephrosis. Stomach and bowel: Unremarkable. No obstruction. No mucosal thickening. Appendix: A normal appendix is identified. Intraperitoneal space: Unremarkable. No free air. No significant fluid collection. Vasculature: There is scattered calcified plaque in the aorta. Lymph nodes: Unremarkable. No enlarged lymph nodes. Urinary bladder: Unremarkable as visualized. Reproductive: The uterus is not visualized, consistent with hysterectomy. There is a 2.5 cm cyst with benign features in the right adnexa unchanged from the prior study. Bones/joints: Unremarkable. No acute fracture. Soft tissues: Unremarkable. CT/CT abdomen pelvis con [id number] IMPRESSION: No acute findings.Non acute findings as described above. Radiation Dose CTDIVOL = (mGy): DLP = 1256.23 (mGy-cm) Dictated By: Rima Preston MD Signed By: Rima Preston MD Signed Date/Time: 05/13/21 1527 DD/ 1434 Discharge Plan Discharge Patient Disposition: Home Clinical Impression: Generalized abdominal pain Condition: Stable Prescriptions: No Action levalbuterol HCl See Rx Instructions .ROUTE .COMPLEX RF: 0 montelukast [Singulair] 10 mg tablet 10 mg PO .as needed RF: 0 bacitracin 500 unit/gram ointment 1 applic ophthalmic (eye) Q8H 7 Days Qty: 3.5 RF: 0 levalbuterol tartrate [Xopenex HFA] 45 mcg/actuation HFA aerosol inhaler See Rx Instructions .ROUTE .COMPLEX RF: 0 tizanidine 2 mg tablet 2 mg PO TID PRN (Reason: muscle spasticity) Qty: 30 RF: 0 ibuprofen 600 mg tablet 600 mg PO Q8H Qty: 30 RF: 0 pantoprazole 40 mg tablet,delayed release (DR/EC) 40 mg PO DAILY 56 Days Qty: 60 RF: 0 promethazine 25 mg tablet 25 mg PO Q6H PRN (Reason: nausea and vomiting) Qty: 10 RF: 0 Discharge Orders: Discharge ED (Routine); Ordered 05/13/21 Ordered By: Brice Shore Referrals: Dominick Shane MD [Primary Care Provider] - Discharge Diet: Advance as tolerated Discharge Activity: Increase activity as tolerated Patient Instructions: Abdominal Pain (ED), Opioid Safety Activity Restrictions/Additional Instructions: Follow-up with general surgery per previous ED referral to get another colonoscopy. take medications as prescribed. Start with a clear liquid diet then advance as tolerated. Return to the ER or your medical provider if condition worsens. Please read and understand discharge instructions. Thank you for choosing [facility] for your healthcare needs today. Please realize this is an emergency room and that we are providing you with a medical screening exam and this may not be complete and all inclusive of all the testing and or work up that you may need to determine your ailment or severity of your illness. It is very important that you follow up as instructed or that you return to the Emergency Department should you have concerns or if your condition changes or worsens in any way. Coding Level of Care Code ED Dye House Helper for Eleuterio Fwmia Exam Comprehensive
[2021-05-13] MEDS: ondansetron 2 mg/ML SDV 2 mL 4 MG IVP (13:03)
[2021-05-13] MEDS: morphine 4 mg/mL SDV 1 mL IVP ×2 (13:03→14:42)
[2021-05-13 13:28] LABS: Bilirubin Urine Neg (Negative); Blood Urine 2+ (Negative); Glucose Urine UA Norm (Normal); Ketones Urine Negative (Negative); Leukocyte Esterase Urine Negative (Negative); Nitrate Urine Negative (Negative); Protein Urine Trace (Negative); Specific Gravity, Urine 1.015 (1.005-1.030); Urine Appearance SL Hazy (CLEAR); Urine Color Yellow (Yellow); Urobilinogen Urine Norm (Negative); pH Urine 5 (5-7)
[2021-05-13 13:29] LABS: Add Urine Microscopic? YES
[2021-05-13 13:37] LABS: RBC Urine 0-4 /hpf (0-2); WBC Urine 0-4 /hpf (0-5)
[2021-05-13 13:38] LABS: Add Urine Culture? No; Bacteria Urine 1+ /hpf; Mucus Urine 1+ /hpf; Squamous Epithelial Cell Urine 15-25 /hpf (0-5)
[2021-05-13 13:39] LABS: Alanine Aminotransferase 11 U/L (0-33); Alkaline Phosphatase 86 IU/L (35-105); Blood Urea Nitrogen 8 mg/dL (6-20); Calcium 8.9 mg/dL (8.5-10.5); Carbon Dioxide 28 mmol/L (22-29); Chloride 97 mmol/L (98-107); Globulin 4.2 g/dL (1.3-4.6); Glomerular Filtration Rate 87.9 mL/min (90-130); Glucose 98 mg/dL (65-115); Lipase 13 U/L (13-60); Osmolality Calculated 280 mOsm/kg (285-295); Sodium 136 mmol/L (136-145); Total Bilirubin 0.2 mg/dL (0.15-1.2); Total Protein 8.2 g/dL (6.6-8.7)
[2021-05-13 13:41] LABS: Anion Gap 15.4 (5-19); Aspartate Amino Transferase 17 U/L (0-32); Potassium 4.4 mmol/L (3.5-5.1)
[2021-05-13 14:19] VITALS: BP 131/64; PULSE 65; RESP 18; O2SAT 94
--- NOTE | 2021-05-13 14:34 | CTR_ITS ---
PROCEDURE INFORMATION: Exam: CT Abdomen And Pelvis Without Contrast Exam date and time: 05/13/2021 2:34 PM Age: 50 years old Clinical indication: Abdominal pain; Localized; Left lower quadrant (llq); Additional info: Llq abdomina pain and nausea TECHNIQUE: Imaging protocol: Computed tomography of the abdomen and pelvis without contrast. Radiation optimization: All CT scans at this facility use at least one of these dose optimization techniques: automated exposure control; mA and/or kV adjustment per patient size (includes targeted exams where dose is matched to clinical indication); or iterative reconstruction. COMPARISON: CT abdomen pelvis w con* [id number] 05/08/2021 9:16 AM RADIATION DOSE METRICS: Total DLP (mGy-cm): 1256.23 FINDINGS: Liver: There are cysts with benign features in the liver, stable from the prior exam. The largest measures 9 mm and is in the left hepatic lobe. Gallbladder and bile ducts: The gallbladder has been removed. Pancreas: Normal. No ductal dilation. Spleen: Normal. No splenomegaly. Adrenal glands: Normal. No mass. Kidneys and ureters: Normal. No hydronephrosis. Stomach and bowel: Unremarkable. No obstruction. No mucosal thickening. Appendix: A normal appendix is identified. Intraperitoneal space: Unremarkable. No free air. No significant fluid collection. Vasculature: There is scattered calcified plaque in the aorta. Lymph nodes: Unremarkable. No enlarged lymph nodes. Urinary bladder: Unremarkable as visualized. Reproductive: The uterus is not visualized, consistent with hysterectomy. There is a 2.5 cm cyst with benign features in the right adnexa unchanged from the prior study. Bones/joints: Unremarkable. No acute fracture. Soft tissues: Unremarkable. CT/CT abdomen pelvis con [id number] IMPRESSION: No acute findings.Non acute findings as described above. Radiation Dose CTDIVOL = (mGy): DLP = 1256.23 (mGy-cm)
[2021-05-13 16:29] VITALS: BP 122/68; PULSE 78; RESP 18; O2SAT 99
== END 2021-05-13 16:36 | disposition home or self-care (01) ==
PROVIDERS: Emergency Provider Physician Assistant; PCP Family Medicine
DX: R10.84 Generalized abdominal pain (principal); F17.210 Nicotine dependence, cigarettes, uncomplicated
CPT/HCPCS: 74176; 80053; 81001; 83690; 85025; 96374; 96375; 96376; 99283; J2270; J2405

== ENCOUNTER → 2022-02-20 12:49 | Outpatient (BNVA) | payer MEDICARE, MEDICAID, SELFPAY | PROVIDERS: PCP Family Medicine; Referring Provider Family Medicine; Visit Provider Podiatrist Foot & Ankle Surgery | DX: S92.515A Nondisplaced fracture of proximal phalanx of left lesser toe(s), initial encounter for closed fracture (principal); X58.XXXA Exposure to other specified factors, initial encounter; S92.502A Displaced unspecified fracture of left lesser toe(s), initial encounter for closed fracture; W23.0XXA Caught, crushed, jammed, or pinched between moving objects, initial encounter | CPT/HCPCS: 73630; 99203; 99204 ==

== ENCOUNTER 2023-05-28 09:45 | Outpatient (CLI) | payer MEDICARE, MEDICAID, SELFPAY ==
--- NOTE | 2023-05-28 09:49 | MR_ITS ---
WS: [id number] MRI LUMBAR SPINE NONCONTRAST HISTORY: LUMBAR INTERVERTEBRAL DISC DEGENERATION COMPARISON: 01/09/2011 TECHNIQUE: Sagittal and axial multisequence imaging is submitted. Normal lumbar alignment with no compression fractures or marrow edema. Mild disc desiccation without significant narrowing at L4-5. No marrow edema or fracture. Conus terminates normally at L1-2 disc level. L1-L2: Normal. L2-L3: Mild bilateral facet joint arthritis and ligamentum flavum hypertrophy. There is very slight e ncroachment upon the LEFT traversing L3 nerve root. L3-L4: Mild annular disc bulging with moderate ligamentum flavum and facet arthritis. Disc and facet arthritis encroaching upon the thecal sac and the subarticular recesses. Mild central and bilateral s ubarticular recess encroachment. Very slight narrowing of the foramina. L4-L5: Diffuse annular disc bulging with marked ligamentum flavum and facet arthritis encroaching upo n the thecal sac. Additional encroachment upon the subarticular recesses. Increased soft tissue in th e LEFT subarticular recess. A tiny associated disc protrusion is not excluded. There is moderate to s evere central and bilateral subarticular recess encroachment. Mild bilateral foraminal stenosis. The most significant encroachment is upon the traversing L5 nerve roots. L5-S1: Mild annular disc bulging with ligamentum flavum and facet arthritis. No significant stenosis. IMPRESSION: 1. L4-5: Moderate to severe central and bilateral subarticular recess encroachment. Significant encro achment upon the traversing L5 nerve roots, LEFT greater than RIGHT. Previously described disc protru rita on 01/09/2011 appears smaller. There is still significant encroachment upon the traversing L5 ner ve roots and a small residual disc fragment is suspected on the LEFT. 2. L3-4: Mild central and bilateral subarticular recess encroachment. 3. L2-3: Very mild encroachment upon the LEFT traversing L3 nerve root.
== END 2023-05-28 09:46 | disposition home or self-care (01) ==
LOC: RAD 09:45
PROVIDERS: PCP Family Medicine; Visit Provider Family Medicine
DX: M51.36 Other intervertebral disc degeneration, lumbar region (principal); M51.26 Other intervertebral disc displacement, lumbar region
CPT/HCPCS: 72148

== ENCOUNTER 2023-07-24 12:23 | Outpatient (CLI) | payer MEDICARE, MEDICAID, SELFPAY ==
--- NOTE | 2023-07-24 12:27 | CT_ITS ---
WS: [id number] CT NECK TECHNIQUE: Contrast-enhanced CT of the neck with coronal and sagittal reformatted images. CLINICAL INFORMATION: NECK MASS COMPARISON: CT neck 01/06/2020 and 11/19/2016 DLP: 218.[address] scans at [facility] use at least one of these dose optimization techniques: automated e xposure control; mA and/or kV adjustment per patient size (includes targeted exams where dose is matc hed to clinical indication); or iterative reconstruction. FINDINGS Palpable marker RIGHT neck. Deep to the palpable marker are several small lymph nodes normal in size . In addition, prominent external jugular vein in this area. Normal underlying sternocleidomastoid. N o suspicious abnormalities in this area. Parotid glands are normal. Normal submandibular glands. A few slightly prominent submandibular lymph nodes unchanged from previous. These are likely reactive. Prominent enhancing lymphoid tissue in the vallecula appears progressed compared to the prior studies with slight bulky nodularity, worse in the LEFT. Recommend direct visualization. Normal parapharyngeal fat. Normal subglottic airway. Moderate chronic emphysematous changes in the lung apices. Biapical fibrosis. A few tiny subpleural n odules in the lung apices. Small RIGHT lower pole thyroid nodule. Otherwise normal homogeneous thyroi d enhancement. Mastoid air cells are well aerated. Paranasal sinuses are well aerated. A few prominent cervical chain lymph nodes similar to previous and likely reactive. IMPRESSION: 1. Palpable marker RIGHT neck with a few normal sized underlying lymph nodes. Underlying prominent e xternal jugular vein. No other abnormalities in this area. 2. Normal submandibular and parotid glands. 3. Prominent enhancing lymphoid tissue in the vallecula appears progressed compared to the prior krystin dies with slight nodularity worse in the LEFT. Recommend direct visualization. 4. Otherwise no evidence of supraglottic or glottic mass. 5. Few prominent cervical chain and submandibular space lymph nodes similar to 2020 likely reactive. 6. A few tiny subpleural nodules in the lung apices. This could be followed up with chest CT. 7. No other suspicious findings.
[2023-07-24] MEDS: iohexol 350 mg/mL 500 mL Btl (per mL) IV (13:12)
== END 2023-07-24 12:24 | disposition home or self-care (01) ==
LOC: RAD 12:23
PROVIDERS: PCP Family Medicine; Visit Provider Family Medicine
DX: R22.1 Localized swelling, mass and lump, neck (principal); R91.8 Other nonspecific abnormal finding of lung field
CPT/HCPCS: 70491; Q9967

== ENCOUNTER → 2023-07-31 08:53 | Outpatient (BNVA) | payer MEDICARE, MEDICAID, SELFPAY | PROVIDERS: PCP Family Medicine; Referring Provider Family Medicine; Visit Provider Nurse Practitioner Family | DX: D39.8 Neoplasm of uncertain behavior of other specified female genital organs (principal); L57.8 Other skin changes due to chronic exposure to nonionizing radiation; D22.62 Melanocytic nevi of left upper limb, including shoulder | CPT/HCPCS: 56605; 99203 ==

== ENCOUNTER → 2024-02-27 13:26 | Outpatient (BNVA) | payer MEDICARE, MEDICAID, SELFPAY | PROVIDERS: PCP Family Medicine; Visit Provider Nurse Practitioner Family | DX: L30.9 Dermatitis, unspecified (principal); D48.5 Neoplasm of uncertain behavior of skin; L72.0 Epidermal cyst; L57.8 Other skin changes due to chronic exposure to nonionizing radiation; L81.4 Other melanin hyperpigmentation | CPT/HCPCS: 10060; 11102; 99213 ==

== ENCOUNTER → 2024-04-27 11:05 | Outpatient (BNVA) | payer MEDICARE, MEDICAID, SELFPAY | PROVIDERS: PCP Family Medicine; Visit Provider Nurse Practitioner Family | DX: F17.200 Nicotine dependence, unspecified, uncomplicated (principal); L57.8 Other skin changes due to chronic exposure to nonionizing radiation; L81.4 Other melanin hyperpigmentation; L70.0 Acne vulgaris; L23.9 Allergic contact dermatitis, unspecified cause | CPT/HCPCS: 99214 ==

== ENCOUNTER → 2024-12-17 11:10 | Outpatient (BNVA) | payer MEDICARE, MEDICAID, SELFPAY | PROVIDERS: PCP Family Medicine; Visit Provider Orthopaedic Surgery | DX: M25.561 Pain in right knee (principal); M25.562 Pain in left knee; G89.29 Other chronic pain; M17.0 Bilateral primary osteoarthritis of knee; M22.2X1 Patellofemoral disorders, right knee; M22.2X2 Patellofemoral disorders, left knee | CPT/HCPCS: 73560; 73565; 99204 ==

== ENCOUNTER → 2025-02-04 08:26 | Outpatient (BNVA) | payer MEDICARE, MEDICAID, SELFPAY | PROVIDERS: PCP Family Medicine; Visit Provider Student in an Organized Health Care Education/Training Program | DX: R07.81 Pleurodynia (principal) | CPT/HCPCS: 99204 ==

== ENCOUNTER 2025-02-09 15:13 | Outpatient (CLI) | payer MEDICARE, MEDICAID, SELFPAY ==
[2025-02-09] MEDS: iohexol 350 mg/mL 500 mL Btl (per mL) IV (15:43)
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
== END 2025-02-09 15:14 | disposition home or self-care (01) ==
LOC: RAD 15:17
PROVIDERS: PCP Family Medicine; Visit Provider Student in an Organized Health Care Education/Training Program
DX: R07.81 Pleurodynia (principal); R93.2 Abnormal findings on diagnostic imaging of liver and biliary tract; N83.201 Unspecified ovarian cyst, right side; N83.202 Unspecified ovarian cyst, left side; Z90.49 Acquired absence of other specified parts of digestive tract; K57.30 Diverticulosis of large intestine without perforation or abscess without bleeding; I70.0 Atherosclerosis of aorta; Z90.710 Acquired absence of both cervix and uterus
CPT/HCPCS: 71260; 74177

== ENCOUNTER → 2025-02-15 13:34 | Outpatient (BNVA) | payer MEDICARE, MEDICAID, SELFPAY | PROVIDERS: PCP Family Medicine; Visit Provider Student in an Organized Health Care Education/Training Program | DX: Z09 Encounter for follow-up examination after completed treatment for conditions other than malignant neoplasm (principal) | CPT/HCPCS: 99213 ==

== ENCOUNTER → 2025-04-20 15:24 | Outpatient (BNVA) | payer MEDICARE, MEDICAID, SELFPAY | PROVIDERS: PCP Family Medicine; Visit Provider Nurse Practitioner Family | DX: L72.0 Epidermal cyst (principal); L57.8 Other skin changes due to chronic exposure to nonionizing radiation; L81.4 Other melanin hyperpigmentation; D22.62 Melanocytic nevi of left upper limb, including shoulder | CPT/HCPCS: 99213 ==